=== PATIENT | male | born 1970 | race African-American/Black ===

== ENCOUNTER 2020-12-17 10:37 | Emergency (ER) | payer MEDICAID, MEDICARE, OTHER ==
[~2020-12-17] VITALS: Ht 170.2 cm; Wt 100.0 kg
[2020-12-17] MEDS ORDERED: ASPIRIN 81MG TABLET PO ONE (11:00)
[2020-12-17] MEDS ORDERED: NITROGLYCERIN 0.4MG TABLET SL SL PRN (11:00)
[2020-12-17 11:31] LABS: CHLORIDE 109 mEq/L (98-107)
[2020-12-17 11:37] LABS: BASOPHILS % 0.2 % (0.0-2.0); EOSINOPHILS % 0.7 % (0.0-5.0); HEMATOCRIT. 40.8 % (42.0-52.0); HEMOGLOBIN. 13.8 g/dL (14.0-18.0); LYMPHOCYTES % 31.8 % (20.0-50.0); MEAN CORPUSCULAR HEMOGLOBIN 31.7 pg (28.0-32.0); MEAN CORPUSCULAR VOLUME 93.5 fL (80.0-94.0); MEAN PLATELET VOLUME 7.4 fl (7.4-10.4); MONOCYTES % 9.8 % (2.0-8.0); NEUTROPHILS % 57.5 % (40.0-76.0); PLATELET 301 x1000/uL (130-400); RED BLOOD CELL COUNT 4.37 mill/uL (4.7-6.1); RED CELL DISTRIBUTION WIDTH 12.7 % (11.6-14.6)
[2020-12-17 15:38] VITALS: BP 95/69
== END 2020-12-17 15:40 | disposition home or self-care (01) ==
LOC: ER 11:10
DX: R07.9 Chest pain, unspecified (principal); I11.0 Hypertensive heart disease with heart failure; I50.9 Heart failure, unspecified
CPT/HCPCS: 36415; 71045; 80053; 83880; 84484; 85025; 93005; 99291; Z7610